=== PATIENT | female | born 1995 | race Caucasian/White ===

== ENCOUNTER → 2018-08-07 16:11 | Outpatient (CLI) | payer OTHER, SELFPAY ==
[2018-08-07 18:33] LABS: T4 Free Direct 1.15 ng/dL (0.76-1.46); Thyroid Stim Hormone (TSH) 0.98 uIU/mL (0.358-3.74)
[2018-08-12 11:22] LABS: Anti-Thyroglobulin AB < 1.0 IU/mL (0.0-0.9); Thyroglobulin, Serum Qt. 11.5 ng/mL (1.4-29.2); Thyroid Peroxidase AB 11 IU/mL (0-34)
== END ==
PROVIDERS: Family Provider Family Medicine; PCP Family Medicine; Referring Provider Family Medicine; Visit Provider Family Medicine
DX: E01.0 Iodine-deficiency related diffuse (endemic) goiter (principal)
CPT/HCPCS: 36415; 84432; 84439; 84443; 86376; 86800

== ENCOUNTER → 2018-08-13 14:45 | Outpatient (CLI) | payer OTHER, SELFPAY ==
--- NOTE | 2018-08-13 14:51 | US_ITS ---
STUDY: THYROID ULTRASOUND REASON FOR EXAM: Female, 22 years old. Thyromegaly TECHNIQUE: Ultrasound evaluation of the thyroid was performed with real-time and static sheriff-scale imaging. COMPARISON: None. FINDINGS: RIGHT LOBE: The right lobe of the thyroid gland measures 5.0 x 1.3 x 1.5 cm. There is a homogeneous echotexture. There are no demonstrated solid, cystic or complex lesions. LEFT LOBE: The left lobe of the thyroid gland measures 4.5 x 1.6 x 1.5 cm. There is a homogeneous echotexture. There are no demonstrated solid, cystic or complex lesions. ISTHMUS: The isthmus measures 0.4, normal echotexture. US/Thyroid IMPRESSION: Normal ultrasound examination of the thyroid. Electronically Signed: Soham Cloud MD at 15:58 EDT Tel , Service support ,
== END ==
PROVIDERS: Family Provider Family Medicine; PCP Family Medicine; Referring Provider Family Medicine; Visit Provider Family Medicine
DX: E01.0 Iodine-deficiency related diffuse (endemic) goiter (principal)
CPT/HCPCS: 76536

== ENCOUNTER → 2018-08-26 17:24 | Outpatient (CLI) | payer OTHER, SELFPAY ==
--- NOTE | 2018-08-26 17:28 | CT_ITS ---
STUDY: CT MAXILLOFACIAL SINUSES REASON FOR EXAM: Female, 22 years old. Chronic recurrent sinusitis 3 years. No prior surgery. RADIATION DOSAGE (If Supplied By Facility): CTDIvol = ( 33.45 ) mGy, DLP = ( 1552.73 ) mGycm TECHNIQUE: The patient was scanned in a multi detector CT scanner. High resolution axial imaging was performed without the administration of intravenous contrast material. Sagittal and coronal images were reconstructed. Individualized dose optimization techniques were used for this CT. COMPARISON: None. FINDINGS: Upper cervical soft tissues exhibit shotty lymph nodes none pathologically enlarged. Pharyngeal and laryngeal soft tissues unremarkable. Superficial facial soft tissues and orbital contents normal. Scalp soft tissues normal. No acute cranial process is evident. No cervical spondylosis. Craniofacial osseous structures intact. Mastoid air cells and middle ear cavities clear. Symmetric and grossly normal features of the vestibular and acoustic apparatus of the temporal bones. The paranasal sinuses are clear. There is no apparent sinus disease at this time. There is very slight nasal septal bowing toward the right. Clear nasal passages turbinates. CT/Sinus/Facial Bone IMPRESSION: There is no evidence of acute or chronic paranasal sinus disease at this time. Electronically Signed: Soham Cloud MD at 12:58 EDT Tel , Service support ,
== END ==
PROVIDERS: Family Provider Family Medicine; PCP Family Medicine; Referring Provider Otolaryngology; Visit Provider Otolaryngology
DX: J32.2 Chronic ethmoidal sinusitis (principal)
CPT/HCPCS: 70486

== ENCOUNTER → 2018-09-17 09:59 | Outpatient (CLI) | payer OTHER, SELFPAY ==
[2018-09-17 12:34] LABS: Absolute Lymphocyte Count 0.61 X10^3/ul (0.83-4.51); Absolute Neutrophil Count 4.5 X10^3/uL (2.0-7.7); Basophil# 0.01 X10^3/uL; Basophil% 0.2 % (0-1); Hematocrit 35.6 % (37-47); Hemoglobin 11.6 g/dl (12.0-15.0); Lymphocyte # 0.61 X10^3/ul (4.0); Lymphocyte % 10.4 % (19-41); Mean Corp Hgb Conc 32.6 g/gl (32-36); Mean Corpuscular Hgb 27.8 pg (27.0-32.0); Mean Corpuscular Volume 85.2 fL (81-99); Mean Platelet Vol. 9.1 fl (6.2-12.0); Monocyte# 0.76 X10^3/uL; Monocyte% 12.9 % (0-10); Neutrophil # 4.49 X10^3/uL (2.7-7.7); Neutrophil % 76.5 % (47-70); POSITIVE COUNT NO; POSITIVE DIFFERENTIAL NO; POSITIVE MORPHOLOGY NO; Platelet Count 198 K/mm3 (150-450); RBC Distribution Width CV 14.4 % (11.6-14.6); RBC Distribution Width SD 45.7 fl (35.1-43.9); Red Blood Count 4.18 M/mm3 (4.2-5.4); White Blood Count 5.9 K/mm3 (4.4-11.0)
[2018-09-17 13:03] LABS: Internal QC Validated? YES +Cl - CLEAR BKGD; Monotest Negative (Negative)
== END ==
PROVIDERS: Family Provider Family Medicine; PCP Family Medicine; Referring Provider Family Medicine; Visit Provider Family Medicine
DX: R59.1 Generalized enlarged lymph nodes (principal)
CPT/HCPCS: 36415; 85025; 86308

== ENCOUNTER 2018-09-18 23:37 | Emergency (ER) | payer OTHER, SELFPAY ==
[2018-09-18 23:39] VITALS: BP 126/73; PULSE 94; RESP 18; TEMP 36.4; O2SAT 97; BMI 23.6
--- NOTE | 2018-09-19 00:22 | RAD_ITS ---
STUDY: X-RAY CHEST REASON FOR EXAM: Female, 22 years old. Cough TECHNIQUE: PA and lateral views of the chest. COMPARISON: None. FINDINGS: The lungs are clear and expanded. There is no demonstrated pleural abnormality. Normal size heart. Normal mediastinum and jay. Normal visualized pulmonary arteries. Normal visualized aortic arch and descending thoracic aorta. Normal visualized thoracic spine. Normal visualized ribs, clavicles, and shoulders. There is no demonstrated abnormality of the visualized soft tissue structures of the upper abdomen. RAD/Chest PA and Lateral IMPRESSION: Normal x-ray examination of the chest. Electronically Signed: Anitha Sanchez MD at 1:26 EDT , Service support ,
[2018-09-19 00:26] VITALS: BP 119/66; PULSE 78; RESP 18; O2SAT 97
[2018-09-19] MEDS: 0.9% Normal Saline 1,000 ML 1000 ML IV (00:58)
[2018-09-19] MEDS: Ondansetron 4 MG/2 ML Vial IV (00:59)
[2018-09-19] MEDS: Ketorolac 15 MG/ML Vial IV (00:59)
--- NOTE | 2018-09-19 01:55 | ED.VISSUMM ---
- ER Visit Summary Date of Service: 09/19/18 Chief Complaint: Multiple complaints History of Present Illness: The patient is a 22 F with multiple complaints. Symptoms started 3 days ago. Gradual onset of swollen lymph nodes, abdominal pains, headaches, nausea, vomiting, neck pain, chills, sweats. Patient saw her PCP and had a negative mono test. She was diagnosed with a viral infection. Patient had influenza A 2 weeks ago. She had a sinus infection 2 weeks before that. Otherwise she is fairly healthy. No past medical issues. Physical Examination: Afebrile and vital signs are unremarkable here. She is alert and oriented. No acute distress. HEENT exam is unremarkable. She does have some bilateral anterior cervical lymphadenopathy. This is some mild fullness. There are no large or fixed nodes. No meningeal signs. Good range of motion. Heart regular rate and rhythm. Lungs clear. Abdomen soft and nontender. CVAs nontender. Skin appears normal. Alert and oriented. No acute distress. Cranial nerves grossly intact. Normal strength and sensation. Test Results: Chest x-ray was normal. Emergency Department Course and Treatment: Patient presents with a viral type picture. I am not hearing any red flags and I believe the patient's appropriate for outpatient work-up. I did treat her symptoms here after discussion with her. She received fluids, Zofran, and Toradol. Because of her recent influenza illness, I did check a chest x-ray. There is no sign of pneumonia. There is nothing to suggest cardiomyopathy or sepsis or other complications from influenza. Nothing to suggest that she requires hospitalization or further diagnostic testing. I believe she is appropriate for outpatient care. Stay hydrated. [id number] remedies for pain and fever. Follow-up with primary care for recheck. Treatment Plan: As above Disposition: Discharge Impression: 1. Influenza-like illness This note was generated with Notegraph[employer]ation software. It may contain incorrect words, spelling, and punctuation that were not noted in review of the chart prior to signing ED Disposition - Plan for ED Patient: Referrals: Nabeel Jimenez MD [Primary Care Provider] -
--- NOTE | 2018-09-19 01:59 | ED.DEP ---
ED Disposition - Plan for ED Patient: Instructions: ED Fever Unconf Cause Referrals: Nabeel Jimenez MD [Primary Care Provider] -
[2018-09-19 02:09] VITALS: BP 121/82; PULSE 76; RESP 16; O2SAT 97
== END 2018-09-19 02:10 | disposition home or self-care (01) ==
PROVIDERS: Emergency Provider Emergency Medicine; Family Provider Family Medicine; PCP Family Medicine
DX: J11.1 Influenza due to unidentified influenza virus with other respiratory manifestations (principal)
CPT/HCPCS: 71046; 96361; 96374; 96375; 99283; J7030; A4216; J2405